=== PATIENT | female | born 1995 | race Caucasian/White ===

== ENCOUNTER 2017-12-14 19:55 | Emergency (ER) | payer OTHER ==
[2017-12-14] MEDS ORDERED: Acetaminophen 500 MG TAB ONE (20:20)
[2017-12-14 20:35] LABS: #Basophils 0.1 thou/uL (0.0-0.2); #Eosinphils 0.1 thou/uL (0.0-0.7); #Lymphocytes 2.4 thou/uL (1.20-3.40); #Monocytes 0.4 thou/uL (0.11-0.59); #Neutrophils 3.5 thou/uL (1.40-6.50); %Eosinophils 1.5 % (0.0-10.0); %Lymphocytes 36.9 % (21.0-51.0); %Monocytes 6.6 % (0.0-10.0); Hemoglobin 11.9 g/dL (12.0-16.0); Mean Corpuscular HGB CONC 33.4 g/dL (32.0-36.0); Mean Corpuscular Hemoglobin 30.9 pg (27.0-31.0); Mean Corpuscular Volume 92.7 fl (81.0-99.0); Mean Platelet Volume 6.8 fL (7.4-10.4); Platelet Count 340 thou/uL (130-400); RBC Distribution Width 12.6 % (11.5-14.5); Red Blood Cell (RBC) Count 3.85 mill/uL (4.20-5.40); White Blood Cell (WBC) Count 6.4 thou/uL (4.8-10.8)
--- NOTE | 2017-12-14 20:49 | CT ---
CT BRAIN WITHOUT CONTRAST: Comparison: None. History: Syncope. Patient fell and hit head. Technique: Multiple contiguous axial images were obtained in a CT of the brain without contrast. FINDINGS: The brain is normal in morphology and attenuation without focal lesions or confluent areas of infarct ion. There is no evidence of hydrocephalus, intracranial hemorrhage or extraaxial fluid collection. The calvarium and overlying soft tissues are unremarkable. The visualized paranasal sinuses and masto id air cells are well aerated. IMPRESSION: No evidence of acute intracranial abnormality. POS: [facility]
[2017-12-14 20:57] LABS: ALT (SGPT) 41 U/L (8-55); AST (SGOT) 31 U/L (5-34); Albumin 4.2 g/dL (3.5-5.0); Alkaline Phosphatase 94 U/L (40-150); Anion Gap 14 mmol/L (10-20); BUN (Urea Nitrogen) 16 mg/dL (7.0-18.7); Bilirubin, Total 0.3 mg/dL (0.2-1.2); Calc. Creatinine Clearance 0 mL/min (70-130); Carbon Dioxide 22 mmol/L (22-29); Chloride 105 mmol/L (98-107); Estimated GFR-MDRD 90; Globulin 3.4 g/dL (2.4-3.5); Glucose 84 mg/dL (70-105); Potassium 3.9 mmol/L (3.5-5.1); Protein, Total 7.6 g/dL (6.0-8.3); Sodium 137 mmol/L (136-145)
[2017-12-14 21:10] LABS: Bilirubin Negative (Negative); Blood, Urine Trace (Negative); Clarity CLEAR (Clear); Glucose, Urine (Dipstick) Negative (Negative); Leukocyte Trace (Negative); Nitrite Negative (Negative); Protein, Urine (Dipstick) Negative (Neg-Trace); Specific Gravity, Urine 1.012 (1.002-1.036); Urobilinogen 0.2 mg/dL (0.2-1.0)
[2017-12-14 21:13] LABS: Bacteria/HPF None Seen HPF (None Seen); Hyaline Casts/LPF 0-3 HYALINE CAST LPF (0-3 Hyaline); RBC/HPF 0-3 HPF (0-3); Squamous Epithelial 0-3 HPF (0-3); WBC/HPF 0-3 HPF (0-3)
--- NOTE | 2018-01-17 15:03 | EKG ---
Test Reason : SYNCOPE Blood Pressure : / mmHG Vent. Rate : 058 BPM Atrial Rate : 058 BPM P-R Int : 142 ms QRS Dur : 104 ms QT Int : 434 ms P-R-T Axes : 057 068 038 degrees QTc Int : 426 ms Sinus bradycardia RSR' or QR pattern in V1 suggests right ventricular conduction delay Borderline ECG Confirmed by SHRAVAN FLYNN ([id number]), editor magazine WARREN BRYAN ([id number]) on 01/17/2018 3:02:23 PM Referred By: Confirmed By:SHRAVAN FLYNN
== END 2017-12-14 22:00 | disposition home or self-care (01) ==
LOC: ERS 19:55
DX: O99.89 Other specified diseases and conditions complicating pregnancy, childbirth and the puerperium (principal); R55 Syncope and collapse; R53.83 Other fatigue; O99.03 Anemia complicating the puerperium; Z79.899 Other long term (current) drug therapy
CPT/HCPCS: 36415; 70450; 80053; 81003; 81015; 85025; 93005; 96360

== ENCOUNTER 2017-12-26 07:10 | Outpatient (CLI) | payer OTHER ==
--- NOTE | 2017-12-26 09:42 | MRI ---
MRI BRAIN WITHOUT CONTRAST: Date: 12/26/17 HISTORY: Loss of consciousness. Syncope. FINDINGS: Correlation is made with the CT scan of 12/14/17. No restricted diffusion is seen. No evidence of infarct, hemorrhage, midline shift, or abnormal extra -axial fluid collections are noted. The ventricular size is normal and the basilar cisterns are paten t. No blood products are noted in the gradient echo sequences. No significant abnormalities are seen on the highly sensitive FLAIR images. There is minimal mucosal disease in the paranasal sinuses. No t onsillar herniation is seen. IMPRESSION: Unremarkable exam. POS: [facility]
--- NOTE | 2018-01-01 10:18 | EEG ---
Referring Physician: DR. JORGE WILSON EEG # [id number] TEST TYPE: ROUTINE OUTPATIENT PROCEDURE: Outpatient electroencephalogram NAME OF PATIENT: Katarina Paz DATE EEG DONE: 12/26/2017. INDICATION: Syncope, collapse, loss of consciousness EEG CLASSIFICATION: Normal awake and asleep. REPORT: This is a 22-channel digital EEG recording utilizing 10-20 international electrode placement system on a patient who presents with syncope, collapse and loss of consciousness. During wakefulness, the background activity consists predominantly of moderate amplitude dominant alpha rhythm of 9-10 Hz. It is symmetric and reactive. This activity is penetrated occasionally by low amplitude fast beta activity and with myogenic activity representing frontalis and temporalis muscles bilaterally. DROWSINESS AND SLEEP: Subject is able to attain periods of drowsiness with diffuse theta activity. Subject is also able to attain non-REM sleep with normal sleep potentials. There is no consistent asymmetry or paroxysmal activity noted. INDUCTION: HYPERVENTILATION: Results in some theta activity. PHOTIC STIMULATION: No significant photic drive seen. EK per minute. IMPRESSION: This EEG is considered normal awake and asleep EEG. There is no clear epileptiform activity or focal abnormality noted. Clinical correlation recommended. Again, normal awake and asleep EEG. 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
== END 2017-12-26 07:11 | disposition home or self-care (01) ==
LOC: MRI 07:10
PROVIDERS: ATTEND Student in an Organized Health Care Education/Training Program
DX: R55 Syncope and collapse (principal); R51 Headache
CPT/HCPCS: 70551; 95816